=== PATIENT | female | born 1970 | race Caucasian/White ===

== ENCOUNTER 2016-07-08 20:15 | Emergency (ER) | payer OTHER ==
[~2016-07-08] VITALS: Ht 157.5 cm; Wt 72.6 kg
[~2016-07-08 20:15] MED LIST: ATIVAN0.5 MG PO; CLARITIN10 MG PO; IBUPROFEN 200200 M1
[2016-07-08 20:28] LABS: URINE BILIRUBIN NEGATIVE (Negative); URINE BLOOD 3+ (Negative); URINE COLOR YELLOW; URINE GLUCOSE-RANDOM* NEGATIVE (Negative); URINE KETONES NEGATIVE (Negative); URINE LEUKOCYTES-REFLEX 2+ (Negative); URINE PROTEIN (DIPSTICK) TRACE (Negative)
[2016-07-08 20:33] LABS: CASTS None Seen /LPF (None Seen); SQUAMOUS 4-10 Moderate /LPF (0-3)
[2016-07-08 20:34] LABS: CRYSTALS None Seen /LPF (None Seen); URINE RBC >20 Many /HPF (0-2); URINE WBC-REFLEX None Seen /HPF (0-5)
[2016-07-08] MEDS ORDERED: XANAX 0.5 MG0.5 MG PO (21:03)
[2016-07-08 21:11] LABS: ABSOLUTE NEUTROPHILS 6.1 thou/uL (1.4-8.2); BASOPHILS 0.6 % (0.0-2.0); EOSINOPHILS 2.3 % (0.0-3.0); HEMATOCRIT 41.6 % (37.0-47.0); HEMOGLOBIN 14.5 gm/dL (12.0-15.0); LYMPHOCYTES 18.9 % (24.0-44.0); MCH 30.6 pg (26.0-34.0); MCHC 34.9 % (28.0-37.0); MCV 87.5 fL (80.0-100.0); MONOCYTES 9.1 % (1.0-8.0); PLATELET COUNT 249 thou/uL (150-400); POLYS 69.1 % (36.0-66.0); RBC 4.75 mil/uL (4.20-5.00); RDW 12.4 % (10.5-14.5); WBC 8.8 thou/uL (4.0-11.0)
[2016-07-08 21:19] LABS: MANUAL DIFF NO
[2016-07-08 21:30] LABS: CREATININE 0.8 mg/dL (0.6-1.3); POTASSIUM 3.6 mmol/L (3.5-5.1)
[2016-07-08 21:38] LABS: ALBUMIN 3.8 g/dL (3.4-5.0); TOTAL BILIRUBIN 0.5 mg/dL (<0.1-1.0); TOTAL PROTEIN 7.8 g/dL (6.4-8.2)
[2016-07-08] MEDS ORDERED: ONDANSETRON HCL4 M2 PO (22:03)
[2016-07-08] MEDS ORDERED: NAPROSYN500 MG PO (22:03)
[2016-07-08] MEDS ORDERED: NORCO 5-325 TA1 EACH PO (22:03)
[2016-07-08 22:08] VITALS: BP 134/85
== END 2016-07-08 22:14 | disposition home or self-care (01) ==
LOC: ER 20:15
PROVIDERS: Emergency Medicine
DX: K81.0 Acute cholecystitis (principal); F10.99 Alcohol use, unspecified with unspecified alcohol-induced disorder; Z88.0 Allergy status to penicillin